=== PATIENT | female | born 1935 | race Caucasian/White ===

== ENCOUNTER 2020-12-15 12:14 | Inpatient (IN) | payer MEDICARE, OTHER, SELFPAY ==
[2020-12-15] VITALS (136 sets, daily range): BP systolic 81–176; BP diastolic 30–108; PULSE 61–96; RESP 13–30; TEMP 36.2–37.4; O2SAT 89–100
--- NOTE | 2020-12-15 12:30 | RT.EKG_ITS ---
APPROVED REPORT Exam: Resting ECG Reason for Exam: covid + Patient Location: E HR:86 bpm ECG Measurements Heart Rate 86 AXIS FL 194 P 39 QRSd 151 QRS -58 QT 391 T 99 QTc 469 Conclusion Sinus rhythm...normal P axis, V-rate 60- 99 Left atrial enlargement Left bundle branch block. ST elevation secondary to IVCD...Multiple VCG criteria
--- NOTE | 2020-12-15 12:41 | ED.GENADUL_ITS ---
Discharge Plan Disposition Patient Disposition: [facility] INPATIENT Condition: Serious Discharge Details Clinical Impression: COVID-19 Primary Care Provider: Anibal Roberts ED Provider: Zay Fernandez Home Meds and New Rx's Prescriptions: No Action metolazone 2.5 mg tablet 2.5 mg RF: 0 tramadol 50 mg Tablet 50 mg PO DAILY PRNRF: 0 amoxicillin 500 mg capsule 500 mg PO TID RF: 0 furosemide 40 mg tablet 120 mg PO DAILY RF: 0 loperamide 2 mg capsule RF: 0 isosorbide mononitrate 30 mg Tablet Extended Release 24 Hr 30 mg PO BID RF: 0 thiamine HCl (vitamin B1) 100 mg Tablet 100 mg PO DAILY RF: 0 hydralazine 25 mg tablet 25 mg PO TID RF: 0 liothyronine 5 mcg tablet 10 mcg PO DAILY RF: 0 hydrocortisone acetate [Anusol-HC] 25 mg Suppository 25 mg [place] BID RF: 0 isosorbide mononitrate 60 mg tablet extended release 24 hr 60 mg PO BID RF: 0 alprazolam [Xanax] 0.25 mg Tablet 0.5 mg PO QHS PRNRF: 0 ascorbic acid (vitamin C) [Vitamin C] 500 mg Tablet 500 mg PO DAILY RF: 0 guanfacine 1 mg tablet 1 mg PO BID RF: 0 nitroglycerin [Nitrostat] 0.4 mg Tablet, Sublingual 0.4 mg SUBLINGUAL ONCE PRNRF: 0 mupirocin 2 % ointment 1 applic TOPICAL BID RF: 0 mirtazapine 15 mg tablet PO DAILY RF: 0 azelastine 137 mcg (0.1 %) Aerosol,[place] 2 spray INTRANASAL BID RF: 0 budesonide 3 mg capsule,delayed,extend.release 9 mg PO DAILY RF: 0 estradiol [Estrace] 0.01 % (0.1 mg/gram) Cream VAGINAL RF: 0 acetaminophen [Tylenol Extra Strength] 500 mg Capsule 500 mg PO BID PRNRF: 0 escitalopram oxalate [Lexapro] 20 mg Tablet 40 mg PO DAILY RF: 0 Restasis 0.05 % [place] 1 drp ophthalmic (eye) BID RF: 0 zinc 50 mg Capsule 220 mg PO DAILY RF: 0 magnesium L-lactate [Magtab] 84 mg Tablet Extended Release 84 mg PO BID RF: 0 Acetyl L-Carnitine 250 mg Capsule 500 mg PO DAILY RF: 0 acetylcysteine [NAC] 600 mg Capsule 600 mg PO BID RF: 0 cholecalciferol (vitamin D3) 1,250 mcg (50,000 unit) Capsule 1,250 mcg PO QMONTH RF: 0 levomefolate calcium 15 mg Tablet 15 mg PO DAILY RF: 0 Medical Decision Making This is an 85-year-old female who lives in the town of [facility]. She has had days of cough, congestion, production of sputum with generalized weakness. She states she was seen at a local urgent care in [facility] and had a positive Covid test on Sunday. She was referred for outpatient monoclonal antibody infusion today and one presenting to the infusion suite was found to have generalized weakness, decreased p.o. intake over days time, the active cough, and was referred to the ER for further evaluation. The patient is followed primarily at the [facility] in [facility] by Dr. Anibal Roberts. Her known medical problems include esophageal spasm, rectal prolapse, coronary artery disease, microscopic colitis, peripheral edema, bradycardia, hypercholesterolemia, hypothyroidism, hypertension, stage IV chronic kidney disease, left ventricular hypertrophy, systolic dysfunction and CHF, atrial fibrillation, anemia, depression, osteoarthritis, vitamin D deficiency, COPD, rheumatoid arthritis, thrombocytosis, history of demand ischemia with mild elevation of troponins, kidney stones, Sjogren's syndrome, dysphagia, paraesophageal hernia, antiphospholipid antibodies syndrome. Patient reports having paraesophageal hernia repair approximately 2 weeks ago. She has been fully immunized against COVID-19 with medical records noting unspecified vaccine June 01 and Pfizer vaccine dose 2 on June 24, 2020 I reviewed and received the patient's records and medications including metolazone 2.5 mg, tramadol 50 mg daily as needed, N-acetylcysteine 600 mg twice daily, Xanax 0.25 to 0.5 mg at night as needed, Tylenol, Lexapro 20 mg 2 tablets once a day, thiamine 100 mg once a day, budesonide 3 mg 3 capsules once a day, Restasis 1 drop both eyes twice a day, mirtazapine 15 mg at night, isosorbide mononitrate 30 mg once twice a day, hydralazine 25 mg 3 times a day, nitroglycerin tablet as needed. Patient arrives with blood pressure 113/92, pulse 93, oxygenating 94% on room air. She is dehydrated in appearance, generally weak, and will drift her oxygen down to 91%. Family had given the patient 0.25 mg of Xanax prior to arrival. Pt notes she is unsure of when she last took her medications. Patient with difficult IV access, anesthesia consulted for midline IV placement R arm. Given the known Covid status, a broad swath of laboratories including CBC, comprehensive, inflammatory and cardiac markers along with blood culture were obtained. I did order an in-house Covid test as well. Portable chest x-ray: no focal infiltrate seen. Laboratories: White count of 9, hematocrit 46, platelets 260. Lactic acid 2.0. Sodium 138, potassium 4.1, chloride 101, BUN 47, creatinine 2.6. LFTs unremarkable. Troponin I elevated at 0.22 in the indeterminate range. Covid +. Case discussed with Dr Hays and we will admit for further management. HPI General Mode of arrival: wheelchair . Date/Time Provider Initiated Documentation: 12/15/20 12:16 . Limitations to Documentation: no limitations . Information obtained by: patient . History of Present Illness 85 year old F presents to the emergency department with the chief complaint of Positive COVID- 19 test this weekend, generalized weakness, cough w sputum, described as moderate, and is localized to the chest. Patient reports no radiation. Patient started experiencing this day(s) and it has been constant. No relieving factors improve symptom(s), No exacerbating factors reported . Patient notes cough, loss of appetite, malaise, nausea/vomiting, weakness and other (Dry heaves without vomiting. Loose and watery stool. Cough with production of sputum). Patient did receive the following treatments prior to arrival, none Related Data Home Medications Medication Instructions Recorded Confirmed acetaminophen [Tylenol Extra 500 mg PO BID PRN 12/15/20 12/15/20 Strength] acetylcarnitine HCl [Acetyl 500 mg PO DAILY 12/15/20 12/15/20 L-Carnitine] acetylcysteine [NAC] 600 mg PO BID 12/15/20 12/15/20 alprazolam [Xanax] 0.5 mg PO QHS PRN 12/15/20 12/15/20 amoxicillin 500 mg PO TID 12/15/20 12/15/20 ascorbic acid (vitamin C) [Vitamin 500 mg PO DAILY 12/15/20 12/15/20 C] azelastine 2 spray INTRANASAL BID 12/15/20 12/15/20 budesonide 9 mg PO DAILY 12/15/20 12/15/20 cholecalciferol (vitamin D3) 1,250 mcg PO QMONTH 12/15/20 12/15/20 cyclosporine [Restasis] 1 drp OPHTHALMIC (EYE) BID 12/15/20 12/15/20 escitalopram oxalate [Lexapro] 40 mg PO DAILY 12/15/20 12/15/20 estradiol [Estrace] VAGINAL 12/15/20 furosemide 120 mg PO DAILY 12/15/20 12/15/20 guanfacine 1 mg PO BID 12/15/20 12/15/20 hydralazine 25 mg PO TID 12/15/20 12/15/20 hydrocortisone acetate [Anusol-HC] 25 mg [place] BID 12/15/20 12/15/20 isosorbide mononitrate 30 mg PO BID 12/15/20 12/15/20 isosorbide mononitrate 60 mg PO BID 12/15/20 12/15/20 levomefolate calcium 15 mg PO DAILY 12/15/20 12/15/20 liothyronine 10 mcg PO DAILY 12/15/20 12/15/20 loperamide 12/15/20 magnesium L-lactate [Magtab] 84 mg PO BID 12/15/20 12/15/20 metolazone 2.5 mg 12/15/20 mirtazapine mg PO DAILY 12/15/20 mupirocin 1 applic TOPICAL BID 12/15/20 12/15/20 nitroglycerin [Nitrostat] 0.4 mg SUBLINGUAL ONCE PRN 12/15/20 12/15/20 thiamine HCl (vitamin B1) 100 mg PO DAILY 12/15/20 12/15/20 tramadol 50 mg PO DAILY PRN 12/15/20 12/15/20 zinc 220 mg PO DAILY 12/15/20 12/15/20 Allergies Allergy/AdvReac Type Severity Reaction Status Date / Time atorvastatin [From Lipitor] Allergy Verified 12/15/20 14:13 ciprofloxacin Allergy Verified 12/15/20 14:13 rofecoxib [From Vioxx] Allergy Verified 12/15/20 14:13 sulfamethoxazole Allergy Verified 12/15/20 14:13 [From Septra] trimethoprim [From Septra] Allergy Verified 12/15/20 14:13 General Stated Complaint: SOB REGINE: 2 Review of Systems Narrative: No syncope. Dry heaves without emesis, loose watery stool, generalized weakness and malaise. See HPI. 8 systems reviewed and otherwise negative. [facility] Medical History (Updated 12/15/20 @ 15:02 by Zay Fernandez MD) Afib Antiphospholipid antibody syndrome CAD (coronary artery disease) CKD (chronic kidney disease) HTN (hypertension) Hypothyroid Kidney stone Sjogrens syndrome Social History Smoking/Tobacco Use Status: Never Smoking risk assessment performed?: Yes Alcohol Intake: never Drug use: Never Substance use type: does not use Do you feel safe at home: Yes Do you feel safe in your relationship?: Yes Exam Narrative Exam Narrative: GEN: awake, alert, oriented 3. Pleasant, well groomed, interactive. HEAD: Normocephalic, atraumatic ENT: Mucous membranes dry, oropharynx unremarkable, External ear exam unremarkable EYES: PERRL, EOMI NECK: Full ROM, no CARLOS, no menigismus CHEST/RESP: Nontender, coarse rales at the bases bilaterally CARDIOVASCULAR: RRR, no murmur, rub susanne. 2+ Rad pulse bilateral ABDOMEN: Soft, nontender, no mass. +Bowel sounds EXT: Full ROM, no edema, no rash Neuro: Grossly normal neurologic exam, conversant, interactive. Psych: Speech fluent, thoughts congruent, affect normal Course Vital Signs Vital signs: Vital Signs Temperature 36.7 C 12/15/20 12:30 Pulse 93 H 12/15/20 12:30 Respiratory Rate 18 12/15/20 12:30 Blood Pressure 113/92 H 12/15/20 12:30 Pulse Oximetry 94 12/15/20 12:30 Temperature 36.7 C 12/15/20 12:30 Temperature Source Tympanic 12/15/20 12:30 Pulse 93 H 12/15/20 12:30 Respiratory Rate 18 12/15/20 12:30 Blood Pressure 113/92 H 12/15/20 12:30 Pulse Oximetry 94 12/15/20 12:30 Oxygen Delivery Method Room Air 12/15/20 12:30 Oxygen Flow Rate 0 12/15/20 12:30 Pain Level 0 12/15/20 12:30 Lab/Test Results Lab/Test Results: 12/15/20 12:34 Blood Blood Culture - Pending 12/15/20 12:34 Blood Blood Culture - Pending
--- NOTE | 2020-12-15 13:19 | NUR.NOTE ---
missed IV x 2, anesthesia paged for access, provider aware. Nursing Note:
[2020-12-15] MEDS: Normal Saline 1,000 ML 150 ML IV (13:59)
[2020-12-15 14:00] LABS: Source Nasal/Nares
[2020-12-15 14:07] LABS: Abs Immature Grans 0.05 10^3/uL (0.0-0.06); Absolute Basophil Count 0.01 10^3/uL (0.0-0.2); Absolute Lymphocyte Count 1.02 10^3/uL (1.2-3.4); Absolute Monocyte Count 0.46 10^3/uL (0.1-0.8); Absolute Neutrophil Count 7.85 10^3/uL (1.2-6.7); Basophils % 0.1; HCT 46.7 % (36.0-46.0); HGB 14.1 g/dL (11.2-15.7); Immature Grans % 0.5; Lymphocytes % 10.9; MCH 29.3 pg (27.0-33.0); MCHC 30.2 % (32.0-36.0); MCV 97.1 fL (80-95); MPV 10.4 fL (8.0-11.0); Monocytes % 4.9; Neutrophils % 83.6; Nucleated RBC 0 %; Platelet Count 260 10^3/uL (130-400); RBC 4.81 10^6/uL (3.93-5.22); RDW 13.9 % (11.7-14.6); RDW-SD 49.7 fL; WBC 9.39 10^3/uL (4.4-10.8)
[2020-12-15 14:34] LABS: ALT 26 U/L (14-59); AST 30 U/L (15-37); Albumin 3.4 g/dL (3.4-5.0); Alkaline Phosphatase 91 U/L (46-116); Anion Gap 9.4 mmol/L (3-11); BUN 47 mg/dL (7-18); Bilirubin, Total 0.4 mg/dL (0.2-1.0); C-Reactive Protein 1.11 mg/dL (0.0-0.3); CO2 27.6 mmol/L (21.0-32.0); CREATININE 2.6 mg/dL (0.55-1.02); Chloride 101 mmol/L (98-107); Estimated GFR 17.54 (mL/min/1.73m2); Glucose 117 mg/dL (74-106); LDH 246 U/L (81-234); Potassium 4.1 mmol/L (3.5-5.1); Sodium 138 mmol/L (136-145); Total Protein 8.1 g/dL (6.4-8.2)
--- NOTE | 2020-12-15 14:37 | W.ANESVAS ---
Midline Placement Date Performed: 12/15/20 Procedure Time: 13:50 Requesting Provider: Zay Fernandez Procedure Location: Emergency Department Sedation Given (Indicate Dose Given): No Sedation given Patient Mental Status: Awake Sterility: Hand Hygiene, Surgical Cap, Surgical Mask and Chlorhexidine Laterality: Right Insertion Site: Brachial Midline Device: PowerGlide Pro 18G Catheter Length: 10 cm Midline Procedure Procedure: Vessel accessed with catheter over needle and Guidewire placed with ease Dressing: Tegaderm Applied Blood Return: Present Flushes: Easily Ultrasound: Sterile probe cover and gel used Ultrasound Image Saved?: Yes Number of Attempts (See previous attempts in note section): 2 Procedure Tolerated: Patient tolerated well Procedure Outcome: Successful Procedure Comment:: attempt 1 by Eligio on left upper arm,. vessels very tourtuous and difficult to track, artery was entered, needle was redirected, the vein was entered, but no blood flow was noted on full advancement of catheter and a dressing was placed and RN aware of inadvertent arterial puncture. 2nd attempt Lilo, right upper arm with success. Performed By: Casey Nagy
[2020-12-15 14:43] LABS: Troponin I 0.22 ng/mL (<0.06)
[2020-12-15 14:46] LABS: Procalcitonin 0.2 ng/mL
[2020-12-15 14:54] LABS: COVID-19 PCR POSITIVE (Negative)
[2020-12-15 14:57] LABS: Creatine Kinase 36 U/L (26-192); NT-proBNP 5533 pg/mL (<300)
--- NOTE | 2020-12-15 15:05 | DI.RAD_ITS ---
Exam(s) XR PORTABLE CHEST AP EXAM: XR PORTABLE CHEST AP CLINICAL HISTORY: Covid +, weakness TECHNIQUE: 2D digital imaging was performed. COMPARISON: No exams were available for comparison FINDINGS: MEDIASTINUM: Normal. HEART: Normal. PULMONARY VASCULATURE: Normal. LUNGS: There is a linear infiltrate in the left mid lung. This may represent atelectasis or pneumoni a. PLEURAL SPACE: No pleural effusion or pneumothorax. BONE:Within normal limits for the patient's age. OTHER FINDINGS:Normal. IMPRESSION: Linear infiltrate in the left mid lung. This may represent atelectasis or pneumonia. DATA REPOSITORY: RADIATION DOSE DELIVERED:
[2020-12-15 15:24] LABS: D-Dimer 1942 ng/mlFEU (<500)
[2020-12-15] MEDS: Dexamethasone 10 MG/ML VIAL IVP (15:33)
[2020-12-15] MEDS: Normal Saline Flush 10 ML SYR IVP (15:34)
[2020-12-15 15:35] LABS: Ferritin 358 ng/mL (8-252)
[2020-12-15 15:44] LABS: Bilirubin Negative (Negative); Blood Negative (Negative); Glucose Negative (Negative); Ketones Negative (Negative); Leukocyte Esterase Moderate (Negative); Nitrite Negative (Negative); Urobilinogen 0.2 EU/dL (Up TO 0.2)
[2020-12-15 15:46] LABS: Clarity Cloudy (Clear)
[2020-12-15 15:53] LABS: Bacteria Many HPF (Negative); C & S Indicated? Yes; Casts Negative LPF (Negative); Crystals Negative HPF (Negative); Epithelial Cells Negative HPF (Negative); Mucus Negative (Negative); Other Cells Negative (Negative); WBC >50 HPF (0-5)
[2020-12-15] MEDS: DOXYCYCLINE 100 MG in Normal Saline 100 ML IVPB (18:03)
--- NOTE | 2020-12-15 18:13 | RESPIRATORY ---
Pt positioned to lateral left side with pillows propped behind her for support.
[2020-12-15 18:39] LABS: Troponin I 0.93 ng/mL (<0.06)
--- NOTE | 2020-12-15 18:49 | W.PM.HP.N ---
Date of service: 12/15/20 Time of Service: 18:50 Assessment and Plan Assessment and plan (1) COVID-19: Status: Acute Assessment and plan: Now requiring 2L of O2. Prior to oxygen requirement, did receive monoclonal antibodies. Now that she is requiring oxygen, will give remdesivir and continue decadron. Additionally, cannot rule out DVT/PE given elevated troponin. The patient does have a h/o hypercoagulable state (antiphospholipid syndrome). Start heparin gtt. (2) Elevated troponin: Status: Acute Assessment and plan: Ddx: Acute CA (we do not know if LBBB is old - will obtain records) vs myocarditis vs acute PE. We do not know if LBBB is new or old. States she had a negative MPI this year at [facility] - we will get those records. This makes myocarditis or PE more likely. Start heparin gtt. I discussed risks/benefits of antiplatelet therapy with the patient. Given her hx of bleeding, I explained that we will watch for this and can stop heparin gtt at any time. She agrees to it. Try nitroglycerin. Cardiology consult. Pulmonology consult. Continue to trend troponins. Will abstain from asa/plavix as of right now given a listed allergy to vioxx and the h/o GI bleeding. Obtain echo. Transfer to ICU. (3) Secondary bacterial pneumonia: Status: Acute Assessment and plan: Start doxycycline/ceftriaxone (4) CKD (chronic kidney disease): Status: Chronic Assessment and plan: Probably at baseline. Obtain PCP records. Will not give IVF. Will maintain home doses of diuretics (5) Antiphospholipid antibody syndrome: Status: Chronic Assessment and plan: See elevated troponin (6) Discharge planning issues: Status: Acute Assessment and plan: Full code Transfer to ICU Low threshold to transfer to a tertiary care facility Total Critical Care Time 60 minutes. History of Present Illness History of Present Illness Chief Complaint: Sent from COVID infusion unit, COVID-19, poor PO intake Narrative: Ms Daugherty is an 85 year old female with PMHx of Afib, Chronic systolic CHF, CAD with h/o type 2 NSTEMI and mild elevation of troponins but normal stress test this year, per patient ([facility]), antiphospholipid syndrome not on anticoagulation due to h/o chronic GI bleeding and iron deficiency, CKD4 , as well as h/o recent hiatal hernia repear (10/04), who was sent over to [facility] ED from [facility]19 antibody infusion clinic after presenting there for her infusion. The patient was reporting not being able to eat or drink for three days due to nausea and dry heaving. She states she first went to get tested on Sunday because she found out that her daughter had tested positive. Her vaccinated daughter had attended a wedding and came down with COVID, now intubated in [place], per patient. The patient herself was asymptomatic on Sunday. She states she has had symptoms of fatigue, cough, but no shortness of breath, diarrhea, a couple of days ago. She has brought up purulent sputum a few times. She endorses subjective fevers/chills. She has not taken her medications in 2 days. She reports epigastric pain which she gets frequently and which goes away with milk. She did not require supplemental oxygen on initial arrival to the ED. She was found to have an elevated troponin of 0.22. Hospitalist admission was requested. She was prescribed monoclonal antibodies and admitted for further workup/management. Since then, she has required 2L of O2. Review of Systems All systems reviewed & are unremarkable except as noted in HPI and below PFSH Medical History (Updated 12/15/20 @ 20:14 by Leanna Hays MD) Afib Antiphospholipid antibody syndrome CAD (coronary artery disease) CKD (chronic kidney disease) COPD (chronic obstructive pulmonary disease) Elevated troponin GI bleeding Hiatal hernia HTN (hypertension) Hypothyroid Iron deficiency anemia Kidney stone Rectal prolapse Sjogrens syndrome Surgical History (Updated 12/15/20 @ 20:08 by Leanna Hays MD) History of repair of hiatal hernia Family History (Updated 12/15/20 @ 20:09 by Leanna Hays MD) Sister Heart disease Hypertension Father Heart disease Stroke Other Diabetes Social History (Updated 12/15/20 @ 20:09 by Leanna Hays MD) Smoking/Tobacco Use Status: Former Tobacco Use Smoking risk assessment performed?: Yes Alcohol Intake: current Alcohol Intake frequency: a few times a month Drug use: Never Substance use type: does not use Do you feel safe at home: Yes Do you feel safe in your relationship?: Yes Meds Allergies and Home Medications Allergies Allergy/AdvReac Type Severity Reaction Status Date / Time atorvastatin [From Lipitor] Allergy Verified 12/15/20 14:13 ciprofloxacin Allergy Verified 12/15/20 14:13 rofecoxib [From Vioxx] Allergy Verified 12/15/20 14:13 sulfamethoxazole Allergy Verified 12/15/20 14:13 [From Septra] trimethoprim [From Septra] Allergy Verified 12/15/20 14:13 Home Medications Medication Instructions Recorded Confirmed Type acetaminophen [Tylenol Extra 500 mg PO BID PRN 12/15/20 12/15/20 History Strength] acetylcarnitine HCl [Acetyl 500 mg PO DAILY 12/15/20 12/15/20 History L-Carnitine] acetylcysteine [NAC] 600 mg PO BID 12/15/20 12/15/20 History alprazolam [Xanax] 0.5 mg PO QHS PRN 12/15/20 12/15/20 History amoxicillin 500 mg PO TID 12/15/20 12/15/20 History ascorbic acid (vitamin C) [Vitamin 500 mg PO DAILY 12/15/20 12/15/20 History C] azelastine 2 spray INTRANASAL BID 12/15/20 12/15/20 History budesonide 9 mg PO DAILY 12/15/20 12/15/20 History cholecalciferol (vitamin D3) 1,250 mcg PO QMONTH 12/15/20 12/15/20 History cyclosporine [Restasis] 1 drp OPHTHALMIC (EYE) BID 12/15/20 12/15/20 History escitalopram oxalate [Lexapro] 40 mg PO DAILY 12/15/20 12/15/20 History estradiol [Estrace] VAGINAL 12/15/20 History furosemide 120 mg PO DAILY 12/15/20 12/15/20 History guanfacine 1 mg PO BID 12/15/20 12/15/20 History hydralazine 25 mg PO TID 12/15/20 12/15/20 History hydrocortisone acetate [Anusol-HC] 25 mg [place] BID 12/15/20 12/15/20 History isosorbide mononitrate 30 mg PO BID 12/15/20 12/15/20 History isosorbide mononitrate 60 mg PO BID 12/15/20 12/15/20 History levomefolate calcium 15 mg PO DAILY 12/15/20 12/15/20 History liothyronine 10 mcg PO DAILY 12/15/20 12/15/20 History loperamide 12/15/20 History magnesium L-lactate [Magtab] 84 mg PO BID 12/15/20 12/15/20 History metolazone 2.5 mg 12/15/20 History mirtazapine mg PO DAILY 12/15/20 History mupirocin 1 applic TOPICAL BID 12/15/20 12/15/20 History nitroglycerin [Nitrostat] 0.4 mg SUBLINGUAL ONCE PRN 12/15/20 12/15/20 History thiamine HCl (vitamin B1) 100 mg PO DAILY 12/15/20 12/15/20 History tramadol 50 mg PO DAILY PRN 12/15/20 12/15/20 History zinc 220 mg PO DAILY 12/15/20 12/15/20 History Exam Narrative Exam Narrative: General: pleasant elderly female, nontoxic appearing, no dyspnea/tachypnea/cyanosis, not proning NEuro: A&OX3, [place], no focal deficits Psych: appropriate speech pattern/content Skin: visible skin intact HEENT: Atraumatic, normocephalic, EOMI, dry MM, clear oropharynx, no submandibular or cervical lymphadenopathy, no goiter or JVD Heart: RRR, +ELAINE Lungs: Diminished breath sounds B Abdomen: soft, tender in epigastrium, nondistended Extremities: no edema BLE's, trace pedal pulses B Results Imaging Additional studies: EKG: LBBB, no prior for comparison, HR 86, SR. EKG: persistent LBBB CXR: Linear infiltrate in the left mid lung. This may represent atelectasis or pneumonia. Labs Result diagrams: 12/15/20 13:51 12/15/20 13:51 Labs: Laboratory Results - last 24 hr 12/15/20 12/15/20 12/15/20 13:51 13:51 13:51 WBC 9.39 RBC 4.81 Hgb 14.1 Hct 46.7 H MCV 97.1 H MCH 29.3 MCHC 30.2 L RDW 13.9 Plt Count 260 MPV 10.4 Immature Gran % 0.5 Neutrophils % 83.6 Lymphocytes % 10.9 Monocytes % 4.9 Eosinophils % 0.0 Basophils % 0.1 Nucleated RBC % 0 Absolute Neutrophils 7.85 H Absolute Lymphocytes 1.02 L Absolute Monocytes 0.46 Absolute Eosinophils 0.00 Absolute Basophils 0.01 D-Dimer VBG Lactate 2.0 H Sodium 138 Potassium 4.1 Chloride 101 Carbon Dioxide 27.6 Anion Gap 9.4 BUN 47 H Creatinine 2.6 H Estimated GFR/1.73 m2 17.54 Glucose 117 H Calcium 9.0 Ferritin 358 H Total Bilirubin 0.4 AST 30 ALT 26 Alkaline Phosphatase 91 Lactate Dehydrogenase 246 H Creatine Kinase Troponin I 0.22 H* C-Reactive Protein 1.11 H NT-Pro-B Natriuret Pep Total Protein 8.1 Albumin 3.4 Procalcitonin 0.2 Urine Color Urine Clarity Urine pH Ur Specific [place] Urine Protein Urine Ketones Urine Blood Urine Nitrite Urine Bilirubin Urine Urobilinogen Ur Leukocyte Esterase Urine RBC Urine WBC Ur Epithelial Cells Urine Crystals Urine Bacteria Urine Casts Urine Mucus Urine Other Ur Culture Indicated? Urine Glucose COVID-19 Source SARS-CoV-2 (PCR) 12/15/20 12/15/20 12/15/20 13:51 13:51 13:52 WBC RBC Hgb Hct MCV MCH MCHC RDW Plt Count MPV Immature Gran % Neutrophils % Lymphocytes % Monocytes % Eosinophils % Basophils % Nucleated RBC % Absolute Neutrophils Absolute Lymphocytes Absolute Monocytes Absolute Eosinophils Absolute Basophils D-Dimer 1942 H VBG Lactate Sodium Potassium Chloride Carbon Dioxide Anion Gap BUN Creatinine Estimated GFR/1.73 m2 Glucose Calcium Ferritin Total Bilirubin AST ALT Alkaline Phosphatase Lactate Dehydrogenase Creatine Kinase 36 Troponin I C-Reactive Protein NT-Pro-B Natriuret Pep 5533 H Total Protein Albumin Procalcitonin Urine Color Urine Clarity Urine pH Ur Specific [place] Urine Protein Urine Ketones Urine Blood Urine Nitrite Urine Bilirubin Urine Urobilinogen Ur Leukocyte Esterase Urine RBC Urine WBC Ur Epithelial Cells Urine Crystals Urine Bacteria Urine Casts Urine Mucus Urine Other Ur Culture Indicated? Urine Glucose COVID-19 Source Nasal/Nares SARS-CoV-2 (PCR) POSITIVE A* 12/15/20 12/15/20 15:20 18:00 WBC RBC Hgb Hct MCV MCH MCHC RDW Plt Count MPV Immature Gran % Neutrophils % Lymphocytes % Monocytes % Eosinophils % Basophils % Nucleated RBC % Absolute Neutrophils Absolute Lymphocytes Absolute Monocytes Absolute Eosinophils Absolute Basophils D-Dimer VBG Lactate Sodium Potassium Chloride Carbon Dioxide Anion Gap BUN Creatinine Estimated GFR/1.73 m2 Glucose Calcium Ferritin Total Bilirubin AST ALT Alkaline Phosphatase Lactate Dehydrogenase Creatine Kinase Troponin I 0.93 H* C-Reactive Protein NT-Pro-B Natriuret Pep Total Protein Albumin Procalcitonin Urine Color Yellow Urine Clarity Cloudy Urine pH 6.0 Ur Specific [place] 1.020 Urine Protein 100 H Urine Ketones Negative Urine Blood Negative Urine Nitrite Negative Urine Bilirubin Negative Urine Urobilinogen 0.2 Ur Leukocyte Esterase Moderate H Urine RBC 10-20 H Urine WBC >50 H Ur Epithelial Cells Negative Urine Crystals Negative Urine Bacteria Many Urine Casts Negative Urine Mucus Negative Urine Other Negative Ur Culture Indicated? Yes Urine Glucose Negative COVID-19 Source SARS-CoV-2 (PCR) Last Vital Signs Temp 37.4 C 12/15/20 17:25 Pulse 75 12/15/20 18:02 Resp 18 12/15/20 17:25 BP 160/100 H 12/15/20 17:25 Pulse Ox 99 12/15/20 17:25
[2020-12-15] MEDS: Enoxaparin 30 MG/0.3 ML SYR SC (18:52)
--- NOTE | 2020-12-15 19:00 | RT.EKG_ITS ---
APPROVED REPORT Exam: Resting ECG Reason for Exam: ELEVATED TROP Patient Location: I HR:73 bpm ECG Measurements Heart Rate 73 AXIS MI 194 P 44 QRSd 143 QRS -58 QT 437 T 130 QTc 483 Conclusion Sinus rhythm...normal P axis, V-rate 60- 99 Left atrial enlargement...P, P'>60mS, <-0.15mV V1 Left bundle branch block...QRSd>120, broad/notched R
[2020-12-15 20:57] LABS: PTT Activated 35.7 sec (21.0-27.5)
--- NOTE | 2020-12-15 21:10 | NUR.NOTE ---
Nursing Note: Patient transfer to ICU, Report given at 2044. Patient transfered at 2054. Patients belongings accompanied patient in [facility] bag.
[2020-12-15] MEDS: cefTRIAXone 1 GM/50 ML BAG IVPB (21:15)
[2020-12-15] MEDS: Melatonin 3 MG TAB PO (22:15)
[2020-12-15] MEDS: hydrALAZINE 25 MG TAB PO (22:15)
[2020-12-15] MEDS: Isosorbide Mononitrate 30 MG TABCR PO (22:15)
[2020-12-15] MEDS: Magnesium Lactate-SR 84 MG TABCR PO (22:16)
--- NOTE | 2020-12-15 22:33 | W.PM.PROGNOT ---
Date of Service Date of service: 12/15/20 Time of Service: 22:33 Assessment and Plan Assessment and plan (1) Elevated troponin: Status: Acute Assessment and plan: Spoke with cardiology at [facility], Dr Bill Jones. He agrees with heparin drip. Troponin elevation could be related strictly to Covid; troponin leak vs myocarditis. Agrees with Echocardiogram. Given h/o APL syndrom, a P.E. is possible. BLE venous dopplers ordered. Echocardiogram was already ordered. Certainly right heart strain on echocardiogram would be evidence for a P.E. Objective Last Vital Signs Temp 36.2 C L 12/15/20 21:31 Pulse 78 12/15/20 21:31 Resp 20 12/15/20 21:31 BP 132/72 12/15/20 21:31 Pulse Ox 98 12/15/20 21:31 Laboratory Results - last 24 hr 12/15/20 12/15/20 12/15/20 13:51 13:51 13:51 WBC 9.39 RBC 4.81 Hgb 14.1 Hct 46.7 H MCV 97.1 H MCH 29.3 MCHC 30.2 L RDW 13.9 Plt Count 260 MPV 10.4 Immature Gran % 0.5 Neutrophils % 83.6 Lymphocytes % 10.9 Monocytes % 4.9 Eosinophils % 0.0 Basophils % 0.1 Nucleated RBC % 0 Absolute Neutrophils 7.85 H Absolute Lymphocytes 1.02 L Absolute Monocytes 0.46 Absolute Eosinophils 0.00 Absolute Basophils 0.01 APTT D-Dimer VBG Lactate 2.0 H Sodium 138 Potassium 4.1 Chloride 101 Carbon Dioxide 27.6 Anion Gap 9.4 BUN 47 H Creatinine 2.6 H Estimated GFR/1.73 m2 17.54 Glucose 117 H Calcium 9.0 Ferritin 358 H Total Bilirubin 0.4 AST 30 ALT 26 Alkaline Phosphatase 91 Lactate Dehydrogenase 246 H Creatine Kinase Troponin I 0.22 H* C-Reactive Protein 1.11 H NT-Pro-B Natriuret Pep Total Protein 8.1 Albumin 3.4 Procalcitonin 0.2 Urine Color Urine Clarity Urine pH Ur Specific [place] Urine Protein Urine Ketones Urine Blood Urine Nitrite Urine Bilirubin Urine Urobilinogen Ur Leukocyte Esterase Urine RBC Urine WBC Ur Epithelial Cells Urine Crystals Urine Bacteria Urine Casts Urine Mucus Urine Other Ur Culture Indicated? Urine Glucose COVID-19 Source SARS-CoV-2 (PCR) 12/15/20 12/15/2012/15/21 13:51 13:51 13:52 WBC RBC Hgb Hct MCV MCH MCHC RDW Plt Count MPV Immature Gran % Neutrophils % Lymphocytes % Monocytes % Eosinophils % Basophils % Nucleated RBC % Absolute Neutrophils Absolute Lymphocytes Absolute Monocytes Absolute Eosinophils Absolute Basophils APTT D-Dimer 1942 H VBG Lactate Sodium Potassium Chloride Carbon Dioxide Anion Gap BUN Creatinine Estimated GFR/1.73 m2 Glucose Calcium Ferritin Total Bilirubin AST ALT Alkaline Phosphatase Lactate Dehydrogenase Creatine Kinase 36 Troponin I C-Reactive Protein NT-Pro-B Natriuret Pep 5533 H Total Protein Albumin Procalcitonin Urine Color Urine Clarity Urine pH Ur Specific [place] Urine Protein Urine Ketones Urine Blood Urine Nitrite Urine Bilirubin Urine Urobilinogen Ur Leukocyte Esterase Urine RBC Urine WBC Ur Epithelial Cells Urine Crystals Urine Bacteria Urine Casts Urine Mucus Urine Other Ur Culture Indicated? Urine Glucose COVID-19 Source Nasal/Nares SARS-CoV-2 (PCR) POSITIVE A* 12/15/20 12/15/20 12/15/20 15:20 18:00 20:34 WBC RBC Hgb Hct MCV MCH MCHC RDW Plt Count MPV Immature Gran % Neutrophils % Lymphocytes % Monocytes % Eosinophils % Basophils % Nucleated RBC % Absolute Neutrophils Absolute Lymphocytes Absolute Monocytes Absolute Eosinophils Absolute Basophils APTT D-Dimer VBG Lactate Sodium Potassium Chloride Carbon Dioxide Anion Gap BUN Creatinine Estimated GFR/1.73 m2 Glucose Calcium Ferritin Total Bilirubin AST ALT Alkaline Phosphatase Lactate Dehydrogenase Creatine Kinase Troponin I 0.93 H* 1.20 H* C-Reactive Protein NT-Pro-B Natriuret Pep Total Protein Albumin Procalcitonin Urine Color Yellow Urine Clarity Cloudy Urine pH 6.0 Ur Specific [place] 1.020 Urine Protein 100 H Urine Ketones Negative Urine Blood Negative Urine Nitrite Negative Urine Bilirubin Negative Urine Urobilinogen 0.2 Ur Leukocyte Esterase Moderate H Urine RBC 10-20 H Urine WBC >50 H Ur Epithelial Cells Negative Urine Crystals Negative Urine Bacteria Many Urine Casts Negative Urine Mucus Negative Urine Other Negative Ur Culture Indicated? Yes Urine Glucose Negative COVID-19 Source SARS-CoV-2 (PCR) 12/15/20 20:34 WBC RBC Hgb Hct MCV MCH MCHC RDW Plt Count MPV Immature Gran % Neutrophils % Lymphocytes % Monocytes % Eosinophils % Basophils % Nucleated RBC % Absolute Neutrophils Absolute Lymphocytes Absolute Monocytes Absolute Eosinophils Absolute Basophils APTT 35.7 H D-Dimer VBG Lactate Sodium Potassium Chloride Carbon Dioxide Anion Gap BUN Creatinine Estimated GFR/1.73 m2 Glucose Calcium Ferritin Total Bilirubin AST ALT Alkaline Phosphatase Lactate Dehydrogenase Creatine Kinase Troponin I C-Reactive Protein NT-Pro-B Natriuret Pep Total Protein Albumin Procalcitonin Urine Color Urine Clarity Urine pH Ur Specific [place] Urine Protein Urine Ketones Urine Blood Urine Nitrite Urine Bilirubin Urine Urobilinogen Ur Leukocyte Esterase Urine RBC Urine WBC Ur Epithelial Cells Urine Crystals Urine Bacteria Urine Casts Urine Mucus Urine Other Ur Culture Indicated? Urine Glucose COVID-19 Source SARS-CoV-2 (PCR)
[2020-12-16] VITALS (63 sets, daily range): BP systolic 106–156; BP diastolic 66–85; PULSE 64–88; RESP 12–25; TEMP 36.6–36.8; O2SAT 86–99
[2020-12-16] MEDS: DOXYCYCLINE 100 MG in Normal Saline 100 ML IVPB (04:53)
[2020-12-16 04:54] LABS: Abs Immature Grans 0.04 10^3/uL (0.0-0.06); Absolute Basophil Count 0.01 10^3/uL (0.0-0.2); Absolute Lymphocyte Count 1.84 10^3/uL (1.2-3.4); Absolute Monocyte Count 0.31 10^3/uL (0.1-0.8); Absolute Neutrophil Count 7.54 10^3/uL (1.2-6.7); Basophils % 0.1; HCT 44.2 % (36.0-46.0); HGB 13.8 g/dL (11.2-15.7); Immature Grans % 0.4; Lymphocytes % 18.9; MCH 29.1 pg (27.0-33.0); MCHC 31.2 % (32.0-36.0); MCV 93.1 fL (80-95); MPV 11.1 fL (8.0-11.0); Monocytes % 3.2; Neutrophils % 77.4; Nucleated RBC 0 %; Platelet Count 250 10^3/uL (130-400); RBC 4.75 10^6/uL (3.93-5.22); RDW 13.9 % (11.7-14.6); RDW-SD 47.4 fL; WBC 9.74 10^3/uL (4.4-10.8)
[2020-12-16 04:56] LABS: Lactate 1.3 mmol/L (0.6-1.4)
[2020-12-16] MEDS: Normal Saline Flush 10 ML SYR IVP (04:56)
[2020-12-16 05:13] LABS: Magnesium 2.3 mg/dL (1.8-2.4)
[2020-12-16 05:33] LABS: D-Dimer 1272 ng/mlFEU (<500)
[2020-12-16 05:38] LABS: C-Reactive Protein 2.57 mg/dL (0.0-0.3); Creatine Kinase 57 U/L (26-192)
[2020-12-16 05:43] LABS: Troponin I 1.29 ng/mL (<0.06)
[2020-12-16 05:49] LABS: ALT 23 U/L (14-59); AST 32 U/L (15-37); Albumin 3.1 g/dL (3.4-5.0); Alkaline Phosphatase 88 U/L (46-116); Anion Gap 13.1 mmol/L (3-11); BUN 58 mg/dL (7-18); Bilirubin, Direct 0.1 mg/dL (0.0-0.2); Bilirubin, Total 0.3 mg/dL (0.2-1.0); CO2 23.9 mmol/L (21.0-32.0); CREATININE 2.5 mg/dL (0.55-1.02); Chloride 103 mmol/L (98-107); Estimated GFR 18.35 (mL/min/1.73m2); Glucose 141 mg/dL (74-106); Potassium 4.4 mmol/L (3.5-5.1); Sodium 140 mmol/L (136-145); Total Protein 7.8 g/dL (6.4-8.2)
[2020-12-16 05:56] LABS: PTT Activated > 155.0 sec (21.0-27.5)
[2020-12-16 06:10] LABS: Vitamin D 25 Total 81.7 ng/mL (30-100)
[2020-12-16 06:11] LABS: Ferritin 456 ng/mL (8-252)
--- NOTE | 2020-12-16 08:00 | RT.EKG_ITS ---
APPROVED REPORT Exam: Resting ECG Reason for Exam: ACS Patient Location: I HR:82 bpm ECG Measurements Heart Rate 82 AXIS MO 198 P 36 QRSd 137 QRS -58 QT 427 T 138 QTc 499 Conclusion Sinus rhythm...normal P axis, V-rate 60- 99 Left atrial enlargement...P, P'>60mS, <-0.15mV V1 Left bundle branch block...QRSd>120, broad/notched R
--- NOTE | 2020-12-16 08:14 | PGE_ITS ---
Subjective Subjective Interval history since last seen: Never received remdesivir last night. Troponin 1.29. on 3L of O2 - saturating 96%. Will try weaning. No CP. Epigastric pain resolved. No echo today. Objective Last Vital Signs Temp 36.2 C L 12/15/20 23:21 Pulse 78 12/16/20 06:01 Resp 16 12/16/20 06:50 BP 155/79 H 12/16/20 06:01 Pulse Ox 97 12/16/20 06:50 Laboratory Results - last 24 hr 12/15/20 12/15/20 12/15/20 13:51 13:51 13:51 WBC 9.39 RBC 4.81 Hgb 14.1 Hct 46.7 H MCV 97.1 H MCH 29.3 MCHC 30.2 L RDW 13.9 Plt Count 260 MPV 10.4 Immature Gran % 0.5 Neutrophils % 83.6 Lymphocytes % 10.9 Monocytes % 4.9 Eosinophils % 0.0 Basophils % 0.1 Nucleated RBC % 0 Absolute Neutrophils 7.85 H Absolute Lymphocytes 1.02 L Absolute Monocytes 0.46 Absolute Eosinophils 0.00 Absolute Basophils 0.01 APTT D-Dimer VBG Lactate 2.0 H Sodium 138 Potassium 4.1 Chloride 101 Carbon Dioxide 27.6 Anion Gap 9.4 BUN 47 H Creatinine 2.6 H Estimated GFR/1.73 m2 17.54 Glucose 117 H Calcium 9.0 Magnesium Ferritin 358 H Total Bilirubin 0.4 Conjugated Bilirubin AST 30 ALT 26 Alkaline Phosphatase 91 Lactate Dehydrogenase 246 H Creatine Kinase Troponin I 0.22 H* C-Reactive Protein 1.11 H NT-Pro-B Natriuret Pep Total Protein 8.1 Albumin 3.4 25-OH Vitamin D Total Procalcitonin 0.2 Urine Color Urine Clarity Urine pH Ur Specific [place] Urine Protein Urine Ketones Urine Blood Urine Nitrite Urine Bilirubin Urine Urobilinogen Ur Leukocyte Esterase Urine RBC Urine WBC Ur Epithelial Cells Urine Crystals Urine Bacteria Urine Casts Urine Mucus Urine Other Ur Culture Indicated? Urine Glucose COVID-19 Source SARS-CoV-2 (PCR) 12/15/20 12/15/20 12/15/20 13:51 13:51 13:52 WBC RBC Hgb Hct MCV MCH MCHC RDW Plt Count MPV Immature Gran % Neutrophils % Lymphocytes % Monocytes % Eosinophils % Basophils % Nucleated RBC % Absolute Neutrophils Absolute Lymphocytes Absolute Monocytes Absolute Eosinophils Absolute Basophils APTT D-Dimer 1942 H VBG Lactate Sodium Potassium Chloride Carbon Dioxide Anion Gap BUN Creatinine Estimated GFR/1.73 m2 Glucose Calcium Magnesium Ferritin Total Bilirubin Conjugated Bilirubin AST ALT Alkaline Phosphatase Lactate Dehydrogenase Creatine Kinase 36 Troponin I C-Reactive Protein NT-Pro-B Natriuret Pep 5533 H Total Protein Albumin 25-OH Vitamin D Total Procalcitonin Urine Color Urine Clarity Urine pH Ur Specific [place] Urine Protein Urine Ketones Urine Blood Urine Nitrite Urine Bilirubin Urine Urobilinogen Ur Leukocyte Esterase Urine RBC Urine WBC Ur Epithelial Cells Urine Crystals Urine Bacteria Urine Casts Urine Mucus Urine Other Ur Culture Indicated? Urine Glucose COVID-19 Source Nasal/Nares SARS-CoV-2 (PCR) POSITIVE A* 12/15/20 12/15/20 12/15/20 15:20 18:00 20:34 WBC RBC Hgb Hct MCV MCH MCHC RDW Plt Count MPV Immature Gran % Neutrophils % Lymphocytes % Monocytes % Eosinophils % Basophils % Nucleated RBC % Absolute Neutrophils Absolute Lymphocytes Absolute Monocytes Absolute Eosinophils Absolute Basophils APTT D-Dimer VBG Lactate Sodium Potassium Chloride Carbon Dioxide Anion Gap BUN Creatinine Estimated GFR/1.73 m2 Glucose Calcium Magnesium Ferritin Total Bilirubin Conjugated Bilirubin AST ALT Alkaline Phosphatase Lactate Dehydrogenase Creatine Kinase Troponin I 0.93 H* 1.20 H* C-Reactive Protein NT-Pro-B Natriuret Pep Total Protein Albumin 25-OH Vitamin D Total Procalcitonin Urine Color Yellow Urine Clarity Cloudy Urine pH 6.0 Ur Specific [place] 1.020 Urine Protein 100 H Urine Ketones Negative Urine Blood Negative Urine Nitrite Negative Urine Bilirubin Negative Urine Urobilinogen 0.2 Ur Leukocyte Esterase Moderate H Urine RBC 10-20 H Urine WBC >50 H Ur Epithelial Cells Negative Urine Crystals Negative Urine Bacteria Many Urine Casts Negative Urine Mucus Negative Urine Other Negative Ur Culture Indicated? Yes Urine Glucose Negative COVID-19 Source SARS-CoV-2 (PCR) 12/15/20 12/16/20 12/16/20 20:34 04:30 04:40 WBC 9.74 RBC 4.75 Hgb 13.8 Hct 44.2 MCV 93.1 D MCH 29.1 MCHC 31.2 L RDW 13.9 Plt Count 250 MPV 11.1 H Immature Gran % 0.4 Neutrophils % 77.4 Lymphocytes % 18.9 Monocytes % 3.2 Eosinophils % 0.0 Basophils % 0.1 Nucleated RBC % 0 Absolute Neutrophils 7.54 H Absolute Lymphocytes 1.84 Absolute Monocytes 0.31 Absolute Eosinophils 0.00 Absolute Basophils 0.01 APTT 35.7 H > 155.0 H* D D-Dimer VBG Lactate Sodium Potassium Chloride Carbon Dioxide Anion Gap BUN Creatinine Estimated GFR/1.73 m2 Glucose Calcium Magnesium Ferritin Total Bilirubin Conjugated Bilirubin AST ALT Alkaline Phosphatase Lactate Dehydrogenase Creatine Kinase Troponin I C-Reactive Protein NT-Pro-B Natriuret Pep Total Protein Albumin 25-OH Vitamin D Total Procalcitonin Urine Color Urine Clarity Urine pH Ur Specific [place] Urine Protein Urine Ketones Urine Blood Urine Nitrite Urine Bilirubin Urine Urobilinogen Ur Leukocyte Esterase Urine RBC Urine WBC Ur Epithelial Cells Urine Crystals Urine Bacteria Urine Casts Urine Mucus Urine Other Ur Culture Indicated? Urine Glucose COVID-19 Source SARS-CoV-2 (PCR) 12/16/20 12/16/20 12/16/20 04:40 04:40 04:40 WBC RBC Hgb Hct MCV MCH MCHC RDW Plt Count MPV Immature Gran % Neutrophils % Lymphocytes % Monocytes % Eosinophils % Basophils % Nucleated RBC % Absolute Neutrophils Absolute Lymphocytes Absolute Monocytes Absolute Eosinophils Absolute Basophils APTT D-Dimer VBG Lactate Sodium 140 Potassium 4.4 Chloride 103 Carbon Dioxide 23.9 Anion Gap 13.1 H BUN 58 H D Creatinine 2.5 H Estimated GFR/1.73 m2 18.35 Glucose 141 H Calcium 9.0 Magnesium 2.3 Ferritin 456 H Total Bilirubin 0.3 Conjugated Bilirubin 0.1 AST 32 ALT 23 Alkaline Phosphatase 88 Lactate Dehydrogenase Creatine Kinase 57 Troponin I 1.29 H* C-Reactive Protein 2.57 H NT-Pro-B Natriuret Pep Total Protein 7.8 Albumin 3.1 L 25-OH Vitamin D Total Procalcitonin Urine Color Urine Clarity Urine pH Ur Specific [place] Urine Protein Urine Ketones Urine Blood Urine Nitrite Urine Bilirubin Urine Urobilinogen Ur Leukocyte Esterase Urine RBC Urine WBC Ur Epithelial Cells Urine Crystals Urine Bacteria Urine Casts Urine Mucus Urine Other Ur Culture Indicated? Urine Glucose COVID-19 Source SARS-CoV-2 (PCR) 12/16/20 12/16/20 12/16/20 04:40 04:40 04:40 WBC RBC Hgb Hct MCV MCH MCHC RDW Plt Count MPV Immature Gran % Neutrophils % Lymphocytes % Monocytes % Eosinophils % Basophils % Nucleated RBC % Absolute Neutrophils Absolute Lymphocytes Absolute Monocytes Absolute Eosinophils Absolute Basophils APTT D-Dimer 1272 H VBG Lactate 1.3 Sodium Potassium Chloride Carbon Dioxide Anion Gap BUN Creatinine Estimated GFR/1.73 m2 Glucose Calcium Magnesium Ferritin Total Bilirubin Conjugated Bilirubin AST ALT Alkaline Phosphatase Lactate Dehydrogenase Creatine Kinase Troponin I C-Reactive Protein NT-Pro-B Natriuret Pep Total Protein Albumin 25-OH Vitamin D Total 81.7 Procalcitonin Urine Color Urine Clarity Urine pH Ur Specific [place] Urine Protein Urine Ketones Urine Blood Urine Nitrite Urine Bilirubin Urine Urobilinogen Ur Leukocyte Esterase Urine RBC Urine WBC Ur Epithelial Cells Urine Crystals Urine Bacteria Urine Casts Urine Mucus Urine Other Ur Culture Indicated? Urine Glucose COVID-19 Source SARS-CoV-2 (PCR)
[2020-12-16] MEDS: hydrALAZINE 25 MG TAB PO ×2 (09:19→13:21)
[2020-12-16] MEDS: Cholecalciferol (Vitamin D3) 1,000 UNIT TAB 2000 UNITS PO (09:19)
[2020-12-16] MEDS: Furosemide 40 MG TAB 120 MG PO (09:19)
[2020-12-16] MEDS: Dexamethasone 10 MG/ML VIAL 6 MG IVP (09:19)
[2020-12-16] MEDS: Escitalopram 20 MG TAB 40 MG PO (09:20)
[2020-12-16] MEDS: Thiamine 100 MG TAB PO (09:20)
[2020-12-16] MEDS: Magnesium Lactate-SR 84 MG TABCR PO (09:20)
[2020-12-16] MEDS: Ascorbic Acid 500 MG TAB PO (09:20)
[2020-12-16] MEDS: guanFACINE 1 MG TAB PO (09:20)
[2020-12-16] MEDS: Zinc Sulfate 220 MG TAB PO (09:20)
[2020-12-16] MEDS: REMDESIVIR 200 MG in Normal Saline 250 ML 250 MG IVPB (09:21)
--- NOTE | 2020-12-16 09:21 | W.CARDCONSUL ---
Date of service: 12/16/20 Time of Service: : Assessment and Plan Assessment and plan (1) Elevated troponin: Status: Acute Assessment and plan: 1. Unclear whether or not troponin elevation is a type I versus type II non-STEMI. Certainly we see elevated troponin strictly due to Covid-19 both from a direct attack by the virus on the myocardial tissue as well as damage due to in immunologic response to the virus. Given her hypoxia this could represent demand ischemia though she is not tachycardic. She likely has underlying coronary disease given her history of type II non-STEMI's in the past. However, per report had a negative stress test within the last year. We are awaiting those records. The patient does has risk factors for acute plaque rupture but is not reporting any significant chest discomfort. Her EKGs are reassuring though she does have a left bundle branch block of unknown chronicity. Unfortunately we are unable to obtain an echocardiogram today. Her creatinine is elevated so she cannot receive a CT to rule out PE and the current plan is to get a VQ scan if stable. Given her antiphospholipid antibody syndrome and the fact that she was on previous anticoagulation, certainly PE is high on the differential especially in the setting of a hypercoagulable state such as Covid. ?For now I agree with the current plan of trending troponins while continuing heparin. It sounds as though the patient has a history of GI bleeding which is why she was not previously on anticoagulation. We will see how she does with the heparin. ?Agree with holding off on Plavix load given the uncertainty that this is in fact a type I non-STEMI and the fact that the patient has had some bleeding issues in the past. ?We will give her full dose aspirin and then continue 81 mg thereon after. ?Should she continue to deteriorate despite aggressive Covid management, would consider transfer to [facility] service History of Present Illness History of Present Illness Chief Complaint: Elevated trop Narrative: This is an 85-year-old female with past medical history significant for atrial fibrillation, systolic heart failure, and presumed coronary artery disease after a type II non-STEMI earlier this year who presents now with acute COVID-19 from the infusion center despite being vaccinated x2 with the Pfizer vaccine. She also has a history of antiphospholipid antibody but not on anticoagulation due to chronic GI bleeding. She initially presented to the antibody infusion clinic after presenting there for infusion. She reported that she had not build to eat or drink anything for 3 days due to nausea and vomiting. She was advised to come to the emergency room. There she was found to have an elevated troponin. She reports some epigastric pain which goes away when she tries to eat something. Her initial troponin was 0.2 but has since climbed to 1.3. She currently denies chest pain. Her EKG shows left bundle branch block but negative for scarbosa criteria. We do not have any previous EKGs to know the chronicity of her left bundle branch block. Review of Systems All systems reviewed & are unremarkable except as noted in HPI and below PFS Medical History Afib Antiphospholipid antibody syndrome CAD (coronary artery disease) CKD (chronic kidney disease) COPD (chronic obstructive pulmonary disease) Elevated troponin GI bleeding Hiatal hernia HTN (hypertension) Hypothyroid Iron deficiency anemia Kidney stone Rectal prolapse Sjogrens syndrome Surgical History History of repair of hiatal hernia Family History Sister Heart disease Hypertension Father Heart disease Stroke Other Diabetes Social History Smoking/Tobacco Use Status: Former Tobacco Use Smoking risk assessment performed?: Yes Alcohol Intake: current Alcohol Intake frequency: a few times a month Drug use: Never Substance use type: does not use Do you feel safe at home: Yes Do you feel safe in your relationship?: Yes Exam Const General: comfortable and no acute distress [facility] Head: normocephalic and atraumatic Eyes General: appearance normal, both eyes and all related structures Resp Effort & Inspection: normal respiratory effort Cardio Rate: regular rate Rhythm: regular rhythm GI Palpation: soft Auscultation: normoactive bowel sounds Skin General skin exam: no rashes or lesions noted Extrem General: normal to inspection and no clubbing, cyanosis or edema Psych Appearance: grossly normal Results Last Vital Signs Temp 36.2 C L 12/15/20 23:21 Pulse 78 12/16/20 06:01 Resp 16 12/16/20 06:50 BP 155/79 H 12/16/20 06:01 Pulse Ox 97 12/16/20 06:50 Labs Result diagrams: 12/16/20 04:30 12/16/20 04:40 Labs: Laboratory Results - last 24 hr 12/15/20 12/15/20 12/15/20 13:51 13:51 13:51 WBC 9.39 RBC 4.81 Hgb 14.1 Hct 46.7 H MCV 97.1 H MCH 29.3 MCHC 30.2 L RDW 13.9 Plt Count 260 MPV 10.4 Immature Gran % 0.5 Neutrophils % 83.6 Lymphocytes % 10.9 Monocytes % 4.9 Eosinophils % 0.0 Basophils % 0.1 Nucleated RBC % 0 Absolute Neutrophils 7.85 H Absolute Lymphocytes 1.02 L Absolute Monocytes 0.46 Absolute Eosinophils 0.00 Absolute Basophils 0.01 APTT D-Dimer VBG Lactate 2.0 H Sodium 138 Potassium 4.1 Chloride 101 Carbon Dioxide 27.6 Anion Gap 9.4 BUN 47 H Creatinine 2.6 H Estimated GFR/1.73 m2 17.54 Glucose 117 H Calcium 9.0 Magnesium Ferritin 358 H Total Bilirubin 0.4 Conjugated Bilirubin AST 30 ALT 26 Alkaline Phosphatase 91 Lactate Dehydrogenase 246 H Creatine Kinase Troponin I 0.22 H* C-Reactive Protein 1.11 H NT-Pro-B Natriuret Pep Total Protein 8.1 Albumin 3.4 25-OH Vitamin D Total Procalcitonin 0.2 Urine Color Urine Clarity Urine pH Ur Specific [place] Urine Protein Urine Ketones Urine Blood Urine Nitrite Urine Bilirubin Urine Urobilinogen Ur Leukocyte Esterase Urine RBC Urine WBC Ur Epithelial Cells Urine Crystals Urine Bacteria Urine Casts Urine Mucus Urine Other Ur Culture Indicated? Urine Glucose COVID-19 Source SARS-CoV-2 (PCR) 12/15/20 12/15/20 12/15/20 13:51 13:51 13:52 WBC RBC Hgb Hct MCV MCH MCHC RDW Plt Count MPV Immature Gran % Neutrophils % Lymphocytes % Monocytes % Eosinophils % Basophils % Nucleated RBC % Absolute Neutrophils Absolute Lymphocytes Absolute Monocytes Absolute Eosinophils Absolute Basophils APTT D-Dimer 1942 H VBG Lactate Sodium Potassium Chloride Carbon Dioxide Anion Gap BUN Creatinine Estimated GFR/1.73 m2 Glucose Calcium Magnesium Ferritin Total Bilirubin Conjugated Bilirubin AST ALT Alkaline Phosphatase Lactate Dehydrogenase Creatine Kinase 36 Troponin I C-Reactive Protein NT-Pro-B Natriuret Pep 5533 H Total Protein Albumin 25-OH Vitamin D Total Procalcitonin Urine Color Urine Clarity Urine pH Ur Specific [place] Urine Protein Urine Ketones Urine Blood Urine Nitrite Urine Bilirubin Urine Urobilinogen Ur Leukocyte Esterase Urine RBC Urine WBC Ur Epithelial Cells Urine Crystals Urine Bacteria Urine Casts Urine Mucus Urine Other Ur Culture Indicated? Urine Glucose COVID-19 Source Nasal/Nares SARS-CoV-2 (PCR) POSITIVE A* 12/15/20 12/15/20 12/15/20 15:20 18:00 20:34 WBC RBC Hgb Hct MCV MCH MCHC RDW Plt Count MPV Immature Gran % Neutrophils % Lymphocytes % Monocytes % Eosinophils % Basophils % Nucleated RBC % Absolute Neutrophils Absolute Lymphocytes Absolute Monocytes Absolute Eosinophils Absolute Basophils APTT D-Dimer VBG Lactate Sodium Potassium Chloride Carbon Dioxide Anion Gap BUN Creatinine Estimated GFR/1.73 m2 Glucose Calcium Magnesium Ferritin Total Bilirubin Conjugated Bilirubin AST ALT Alkaline Phosphatase Lactate Dehydrogenase Creatine Kinase Troponin I 0.93 H* 1.20 H* C-Reactive Protein NT-Pro-B Natriuret Pep Total Protein Albumin 25-OH Vitamin D Total Procalcitonin Urine Color Yellow Urine Clarity Cloudy Urine pH 6.0 Ur Specific [place] 1.020 Urine Protein 100 H Urine Ketones Negative Urine Blood Negative Urine Nitrite Negative Urine Bilirubin Negative Urine Urobilinogen 0.2 Ur Leukocyte Esterase Moderate H Urine RBC 10-20 H Urine WBC >50 H Ur Epithelial Cells Negative Urine Crystals Negative Urine Bacteria Many Urine Casts Negative Urine Mucus Negative Urine Other Negative Ur Culture Indicated? Yes Urine Glucose Negative COVID-19 Source SARS-CoV-2 (PCR) 12/15/20 12/16/20 12/16/20 20:34 04:30 04:40 WBC 9.74 RBC 4.75 Hgb 13.8 Hct 44.2 MCV 93.1 D MCH 29.1 MCHC 31.2 L RDW 13.9 Plt Count 250 MPV 11.1 H Immature Gran % 0.4 Neutrophils % 77.4 Lymphocytes % 18.9 Monocytes % 3.2 Eosinophils % 0.0 Basophils % 0.1 Nucleated RBC % 0 Absolute Neutrophils 7.54 H Absolute Lymphocytes 1.84 Absolute Monocytes 0.31 Absolute Eosinophils 0.00 Absolute Basophils 0.01 APTT 35.7 H > 155.0 H* D D-Dimer VBG Lactate Sodium Potassium Chloride Carbon Dioxide Anion Gap BUN Creatinine Estimated GFR/1.73 m2 Glucose Calcium Magnesium Ferritin Total Bilirubin Conjugated Bilirubin AST ALT Alkaline Phosphatase Lactate Dehydrogenase Creatine Kinase Troponin I C-Reactive Protein NT-Pro-B Natriuret Pep Total Protein Albumin 25-OH Vitamin D Total Procalcitonin Urine Color Urine Clarity Urine pH Ur Specific [place] Urine Protein Urine Ketones Urine Blood Urine Nitrite Urine Bilirubin Urine Urobilinogen Ur Leukocyte Esterase Urine RBC Urine WBC Ur Epithelial Cells Urine Crystals Urine Bacteria Urine Casts Urine Mucus Urine Other Ur Culture Indicated? Urine Glucose COVID-19 Source SARS-CoV-2 (PCR) 12/16/20 12/16/20 12/16/20 04:40 04:40 04:40 WBC RBC Hgb Hct MCV MCH MCHC RDW Plt Count MPV Immature Gran % Neutrophils % Lymphocytes % Monocytes % Eosinophils % Basophils % Nucleated RBC % Absolute Neutrophils Absolute Lymphocytes Absolute Monocytes Absolute Eosinophils Absolute Basophils APTT D-Dimer VBG Lactate Sodium 140 Potassium 4.4 Chloride 103 Carbon Dioxide 23.9 Anion Gap 13.1 H BUN 58 H D Creatinine 2.5 H Estimated GFR/1.73 m2 18.35 Glucose 141 H Calcium 9.0 Magnesium 2.3 Ferritin 456 H Total Bilirubin 0.3 Conjugated Bilirubin 0.1 AST 32 ALT 23 Alkaline Phosphatase 88 Lactate Dehydrogenase Creatine Kinase 57 Troponin I 1.29 H* C-Reactive Protein 2.57 H NT-Pro-B Natriuret Pep Total Protein 7.8 Albumin 3.1 L 25-OH Vitamin D Total Procalcitonin Urine Color Urine Clarity Urine pH Ur Specific [place] Urine Protein Urine Ketones Urine Blood Urine Nitrite Urine Bilirubin Urine Urobilinogen Ur Leukocyte Esterase Urine RBC Urine WBC Ur Epithelial Cells Urine Crystals Urine Bacteria Urine Casts Urine Mucus Urine Other Ur Culture Indicated? Urine Glucose COVID-19 Source SARS-CoV-2 (PCR) 12/16/20 12/16/20 12/16/20 04:40 04:40 04:40 WBC RBC Hgb Hct MCV MCH MCHC RDW Plt Count MPV Immature Gran % Neutrophils % Lymphocytes % Monocytes % Eosinophils % Basophils % Nucleated RBC % Absolute Neutrophils Absolute Lymphocytes Absolute Monocytes Absolute Eosinophils Absolute Basophils APTT D-Dimer 1272 H VBG Lactate 1.3 Sodium Potassium Chloride Carbon Dioxide Anion Gap BUN Creatinine Estimated GFR/1.73 m2 Glucose Calcium Magnesium Ferritin Total Bilirubin Conjugated Bilirubin AST ALT Alkaline Phosphatase Lactate Dehydrogenase Creatine Kinase Troponin I C-Reactive Protein NT-Pro-B Natriuret Pep Total Protein Albumin 25-OH Vitamin D Total 81.7 Procalcitonin Urine Color Urine Clarity Urine pH Ur Specific [place] Urine Protein Urine Ketones Urine Blood Urine Nitrite Urine Bilirubin Urine Urobilinogen Ur Leukocyte Esterase Urine RBC Urine WBC Ur Epithelial Cells Urine Crystals Urine Bacteria Urine Casts Urine Mucus Urine Other Ur Culture Indicated? Urine Glucose COVID-19 Source SARS-CoV-2 (PCR)
[2020-12-16] MEDS: Liothyronine 5 MCG TAB 10 MCG PO (10:12)
[2020-12-16] MEDS: Aspirin E.C. 325 MG TABEC PO (12:24)
[2020-12-16 12:48] LABS: Troponin I 1.11 ng/mL (<0.06)
[2020-12-16] MEDS: Isosorbide Mononitrate 60 MG TABCR PO (13:21)
[2020-12-16] MEDS: Isosorbide Mononitrate 30 MG TABCR PO (13:21)
[2020-12-16 13:24] LABS: PTT Activated > 155.0 sec (21.0-27.5)
--- NOTE | 2020-12-16 14:14 | PDOC.CMDIS ---
- If Service Date Differs Date of service: 12/16/20 Time of Service: 14:14 LACE Index Scoring Tool - Questions: Length of Stay (in days): 1 Acuity (Admit via E.D.?): Yes Comorbidities: Chronic Pulmonary Disease, Liver or Renal Disease E.D. Visits: 1 - Answers: Total Score: 10 Risk of Readmission: High Risk Care Management Discharge Reason for Hospitalization: Covid-19, MARIAELENA Discharge Plan: Emergent transfer from [facility] ICU to [facility]. EMS transportation coordinated by nursing supervisor home restoration service. Patient/Family Education Needs: Review of transfer plan, ask me three.
--- NOTE | 2020-12-16 14:17 | W.PM.DS.N ---
Date of service: 12/16/20 Time of Service: 14:18 DS: Diagnosis Discharge Diagnosis (1) Elevated troponin: Status: Acute (2) COVID-19: Status: Acute (3) Secondary bacterial pneumonia: Status: Acute (4) Antiphospholipid antibody syndrome: Status: Chronic (5) CKD (chronic kidney disease): Status: Chronic (6) COPD (chronic obstructive pulmonary disease): Status: Chronic (7) Esophageal dysphagia: Status: Acute (8) H/O: GI bleed: Status: Acute (9) Asymptomatic bacteriuria: Status: Acute Discharge Plan Disposition Patient Disposition: [facility] Condition: Serious Discharge Details Reason For Visit: BRENDENID-19, MARIAELENA Admit Date/Time: 12/16/20 08:25 Admit Provider: Leanna Hays Attending Provider: Leanna Hays Primary Care Provider: Anibal Roberts [facility] Hospital Course: Ms Daugherty is an 85 year old female with PMHx of CAD s/p type 2 NSTEMI in the past but a normal MPI stress test in 2020, as well as h/o antiphospholipid syndrome, paroxysmal Afib, chronic systolic CHF (unknown LVEF), not on anticoagulation, recent repair of her paraesophageal/hiatal hernia, as well as h/o chronic iron deficiency anemia which was, per patient, due to suspected chronic GI bleeding, who was admitted to [facility] hospitalist service on 12/15/20 and thereafter transferred to the ICU for elevated troponin due to ACS vs myocarditis in setting of acute COVID-19 disease. Additionally, the patient does appear to have a mild superimposed bacterial pneumonia, for which she was initiated on empiric ceftriaxone and doxycycline. The patient had first tested positive for COVID-19 while asymptomatic on 12/11/20. She develped symptoms of fatigue/malaise, mildly productive cough, nausea and dry heaving as well as diarrhea 1-2 days later. She was referred for monoclonal antibody infusion at [facility] - however, at the time of presentation was felt to require an evaluation in our ED based on her clinical appearance. There, she was found to have an elevated troponin of 0.22 with a LBBB on EKG, which we now know to be old. The patient did report epigastric pain which she gets frequently and which goes away with milk ever since her surgery (she has also had difficulty with swallowing and with regurgitation ever since her surgery in 10/04). The patient did not initially require oxygen, so she did receive the monoclonal antibody infusion (bamlanivimab/etesevimab) on 12/15/20. However, her oxygen requirement increased to 2L, so the patient was initiated on dexamethasone and remdesivir. Troponins continued to go up to 0.93, then to 1.20, 1.29 and finally back down to 1.11. The patient was empirically started on heparin gtt, but with cardiology's advice ([facility]), we held off of plavix as the patient was not actively having chest pain. Dr Lin of cardiology at [facility] did recommend addition of asa. The patient was advised about the risk of bleeding and agreed to try the therapy. It is unclear if she is having an MS or another cause for her elevated troponin (myocarditis from COVID-19 or possibly even a PE, considering hypercoagulable state). Cardiology recommends a transthoracic echocardiogram, but one is not available in our facility until next week. No beds were available at [facility] or [facility]. The patient was accepted in transfer to [facility] ICU by Dr Grande for further workup and management of her elevated troponin, COVID-19. She would also benefit from a GI consult for her esophageal phase dysphagia. Total Critical Care Time 90 minutes. Please, look for [facility] for list of inpatient medications. The list below reflect the patient's outpatient prescription. Home Meds and New Rx's Prescriptions: No Action furosemide 40 mg tablet 0 mg PO DIRECTED RF: 0 loperamide 2 mg capsule 0 mg PO DAILY PRN PRNRF: 0 isosorbide mononitrate 30 mg Tablet Extended Release 24 Hr 30 mg PO BID RF: 0 thiamine HCl (vitamin B1) 100 mg Tablet 100 mg PO DAILY RF: 0 hydralazine 25 mg tablet 25 mg PO TID RF: 0 liothyronine 5 mcg tablet 10 mcg PO DAILY RF: 0 isosorbide mononitrate 60 mg tablet extended release 24 hr 60 mg PO BID RF: 0 ascorbic acid (vitamin C) [Vitamin C] 500 mg Tablet 500 mg PO DAILY RF: 0 guanfacine 1 mg tablet 1 mg PO BID RF: 0 nitroglycerin [Nitrostat] 0.4 mg Tablet, Sublingual 0.4 mg SUBLINGUAL Q5 MIN PRN X3 PRNRF: 0 mirtazapine 15 mg tablet 7.5 - 15 mg PO HS RF: 0 azelastine 137 mcg (0.1 %) Aerosol,[place] 2 spray INTRANASAL BID RF: 0 budesonide 3 mg capsule,delayed,extend.release 9 mg PO DAILY RF: 0 acetaminophen [Tylenol Extra Strength] 500 mg Capsule 500 mg PO BID PRNRF: 0 escitalopram oxalate [Lexapro] 20 mg Tablet 40 mg PO DAILY RF: 0 zinc 50 mg Capsule 220 mg PO DAILY RF: 0 magnesium L-lactate [Magtab] 84 mg Tablet Extended Release 84 mg PO BID RF: 0 Acetyl L-Carnitine 250 mg Capsule 500 mg PO DAILY RF: 0 acetylcysteine [NAC] 600 mg Capsule 600 mg PO BID RF: 0 cholecalciferol (vitamin D3) 1,250 mcg (50,000 unit) Capsule 1,250 mcg PO QMONTH RF: 0 levomefolate calcium 15 mg Tablet 15 mg PO DAILY RF: 0 Discharge Instructions Instructions: COVID-19 (Coronavirus Disease 2019) (DC) Activity:: bed to chair Diet:: Normal Diet Discharge Orders Discharge Orders: Discharge Order (Routine); Ordered 12/16/20 Ordered By: Leanna Hays DS: Summary Time Spent with Patient providing and/or coordinating discharge services: Greater than 30 minutes Status at Discharge Functional status at discharge: independent ambulation Overall status at discharge: patient is not back to baseline Mental Status: mental status grossly normal Speech and Movement: speech and movement normal Mood: congruent mood Affect: normal affect Exam Narrative Exam Narrative: General: pleasant elderly female, nontoxic appearing, no dyspnea/tachypnea/cyanosis, not proning NEuro: A&OX3, UTE, no focal deficits Psych: appropriate speech pattern/content Skin: visible skin intact HEENT: Atraumatic, normocephalic, EOMI, dry MM, clear oropharynx, no submandibular or cervical lymphadenopathy, no goiter or JVD Heart: RRR, +ELAINE Lungs: Diminished breath sounds B Abdomen: soft, tender in epigastrium, nondistended Extremities: no edema BLE's, trace pedal pulses B Psych Mental Status: mental status grossly normal Speech and Movement: speech and movement normal Mood: congruent mood Affect: normal affect DS: Data Vitals/I&O Vitals and I&O: Vital Signs Temperature 36.8 C 12/16/20 12:00 Temperature Source Temporal Artery Scan 12/16/20 08:30 Pulse 79 12/16/20 12:01 Pulse Rhythm Regular 12/15/20 17:25 Pulse 76 12/16/20 13:00 Respiratory Rate 21 12/16/20 13:00 Respiratory Effort Non-Labored 12/16/20 12:00 Respiratory Depth Normal 12/16/20 12:00 Respiratory Pattern Normal 12/16/20 12:00 Blood Pressure 156/85 H 12/16/20 12:01 Blood Pressure Mean 101 12/16/20 12:01 Blood Pressure Position Supine 12/16/20 08:30 Pulse Oximetry 96 12/16/20 13:00 Oxygen Delivery Method Nasal Cannula 12/16/20 12:00 Oxygen Flow Rate 2 12/16/20 12:00 Pain Level 0 12/16/20 12:00 Intake & Output 12/15/20 12/16/20 12/16/20 23:59 11:59 23:59 Intake Total 160 / 160 1688 / 1744.1 56.1 / 1744.1 Output Total 480 / 480 Balance 160 / 160 1208 / 1264.1 56.1 / 1264.1 Weight 55.1 kg Intake: IV 160 / 160 1688 / 1744.1 56.1 / 1744.1 Output: Urine 480 / 480 Other: Urine Color Pale Pale Yellow Yellow Urine Appearance Clear Clear Comment gautam placed Data Completed and Pending Completed studies during hospitalization [Text1]: CXR: Linear infiltrate in the left mid lung. This may represent atelectasis or pneumonia. Labs on day of discharge: Labs from last 24 hours 12/16/20 12/16/20 12/16/20 12:20 12:20 04:40 WBC RBC Hgb Hct MCV MCH MCHC RDW Plt Count MPV Immature Gran % Neutrophils % Lymphocytes % Monocytes % Eosinophils % Basophils % Nucleated RBC % Absolute Neutrophils Absolute Lymphocytes Absolute Monocytes Absolute Eosinophils Absolute Basophils APTT > 155.0 H* D-Dimer 1272 H VBG Lactate Sodium Potassium Chloride Carbon Dioxide Anion Gap BUN Creatinine Estimated GFR/1.73 m2 Glucose Calcium Magnesium Ferritin Total Bilirubin Conjugated Bilirubin AST ALT Alkaline Phosphatase Lactate Dehydrogenase Creatine Kinase Troponin I 1.11 H* C-Reactive Protein NT-Pro-B Natriuret Pep Total Protein Albumin 25-OH Vitamin D Total Procalcitonin Urine Color Urine Clarity Urine pH Ur Specific [place] Urine Protein Urine Ketones Urine Blood Urine Nitrite Urine Bilirubin Urine Urobilinogen Ur Leukocyte Esterase Urine RBC Urine WBC Ur Epithelial Cells Urine Crystals Urine Bacteria Urine Casts Urine Mucus Urine Other Ur Culture Indicated? Urine Glucose SARS-CoV-2 (PCR) 12/16/20 12/16/20 12/16/20 04:40 04:40 04:40 WBC RBC Hgb Hct MCV MCH MCHC RDW Plt Count MPV Immature Gran % Neutrophils % Lymphocytes % Monocytes % Eosinophils % Basophils % Nucleated RBC % Absolute Neutrophils Absolute Lymphocytes Absolute Monocytes Absolute Eosinophils Absolute Basophils APTT D-Dimer VBG Lactate 1.3 Sodium Potassium Chloride Carbon Dioxide Anion Gap BUN Creatinine Estimated GFR/1.73 m2 Glucose Calcium Magnesium 2.3 Ferritin Total Bilirubin Conjugated Bilirubin AST ALT Alkaline Phosphatase Lactate Dehydrogenase Creatine Kinase Troponin I C-Reactive Protein NT-Pro-B Natriuret Pep Total Protein Albumin 25-OH Vitamin D Total 81.7 Procalcitonin Urine Color Urine Clarity Urine pH Ur Specific [place] Urine Protein Urine Ketones Urine Blood Urine Nitrite Urine Bilirubin Urine Urobilinogen Ur Leukocyte Esterase Urine RBC Urine WBC Ur Epithelial Cells Urine Crystals Urine Bacteria Urine Casts Urine Mucus Urine Other Ur Culture Indicated? Urine Glucose SARS-CoV-2 (PCR) 12/16/20 12/16/20 12/16/20 04:40 04:40 04:40 WBC RBC Hgb Hct MCV MCH MCHC RDW Plt Count MPV Immature Gran % Neutrophils % Lymphocytes % Monocytes % Eosinophils % Basophils % Nucleated RBC % Absolute Neutrophils Absolute Lymphocytes Absolute Monocytes Absolute Eosinophils Absolute Basophils APTT > 155.0 H* D D-Dimer VBG Lactate Sodium 140 Potassium 4.4 Chloride 103 Carbon Dioxide 23.9 Anion Gap 13.1 H BUN 58 H D Creatinine 2.5 H Estimated GFR/1.73 m2 18.35 Glucose 141 H Calcium 9.0 Magnesium Ferritin 456 H Total Bilirubin 0.3 Conjugated Bilirubin 0.1 AST 32 ALT 23 Alkaline Phosphatase 88 Lactate Dehydrogenase Creatine Kinase 57 Troponin I 1.29 H* C-Reactive Protein 2.57 H NT-Pro-B Natriuret Pep Total Protein 7.8 Albumin 3.1 L 25-OH Vitamin D Total Procalcitonin Urine Color Urine Clarity Urine pH Ur Specific [place] Urine Protein Urine Ketones Urine Blood Urine Nitrite Urine Bilirubin Urine Urobilinogen Ur Leukocyte Esterase Urine RBC Urine WBC Ur Epithelial Cells Urine Crystals Urine Bacteria Urine Casts Urine Mucus Urine Other Ur Culture Indicated? Urine Glucose SARS-CoV-2 (PCR) 12/16/20 12/15/20 12/15/20 04:30 20:34 20:34 WBC 9.74 RBC 4.75 Hgb 13.8 Hct 44.2 MCV 93.1 D MCH 29.1 MCHC 31.2 L RDW 13.9 Plt Count 250 MPV 11.1 H Immature Gran % 0.4 Neutrophils % 77.4 Lymphocytes % 18.9 Monocytes % 3.2 Eosinophils % 0.0 Basophils % 0.1 Nucleated RBC % 0 Absolute Neutrophils 7.54 H Absolute Lymphocytes 1.84 Absolute Monocytes 0.31 Absolute Eosinophils 0.00 Absolute Basophils 0.01 APTT 35.7 H D-Dimer VBG Lactate Sodium Potassium Chloride Carbon Dioxide Anion Gap BUN Creatinine Estimated GFR/1.73 m2 Glucose Calcium Magnesium Ferritin Total Bilirubin Conjugated Bilirubin AST ALT Alkaline Phosphatase Lactate Dehydrogenase Creatine Kinase Troponin I 1.20 H* C-Reactive Protein NT-Pro-B Natriuret Pep Total Protein Albumin 25-OH Vitamin D Total Procalcitonin Urine Color Urine Clarity Urine pH Ur Specific [place] Urine Protein Urine Ketones Urine Blood Urine Nitrite Urine Bilirubin Urine Urobilinogen Ur Leukocyte Esterase Urine RBC Urine WBC Ur Epithelial Cells Urine Crystals Urine Bacteria Urine Casts Urine Mucus Urine Other Ur Culture Indicated? Urine Glucose SARS-CoV-2 (PCR) 12/15/20 12/15/20 12/15/20 18:00 15:20 13:52 WBC RBC Hgb Hct MCV MCH MCHC RDW Plt Count MPV Immature Gran % Neutrophils % Lymphocytes % Monocytes % Eosinophils % Basophils % Nucleated RBC % Absolute Neutrophils Absolute Lymphocytes Absolute Monocytes Absolute Eosinophils Absolute Basophils APTT D-Dimer VBG Lactate Sodium Potassium Chloride Carbon Dioxide Anion Gap BUN Creatinine Estimated GFR/1.73 m2 Glucose Calcium Magnesium Ferritin Total Bilirubin Conjugated Bilirubin AST ALT Alkaline Phosphatase Lactate Dehydrogenase Creatine Kinase Troponin I 0.93 H* C-Reactive Protein NT-Pro-B Natriuret Pep Total Protein Albumin 25-OH Vitamin D Total Procalcitonin Urine Color Yellow Urine Clarity Cloudy Urine pH 6.0 Ur Specific [place] 1.020 Urine Protein 100 H Urine Ketones Negative Urine Blood Negative Urine Nitrite Negative Urine Bilirubin Negative Urine Urobilinogen 0.2 Ur Leukocyte Esterase Moderate H Urine RBC 10-20 H Urine WBC >50 H Ur Epithelial Cells Negative Urine Crystals Negative Urine Bacteria Many Urine Casts Negative Urine Mucus Negative Urine Other Negative Ur Culture Indicated? Yes Urine Glucose Negative SARS-CoV-2 (PCR) POSITIVE A* 12/15/20 12/15/20 12/15/20 13:51 13:51 13:51 WBC RBC Hgb Hct MCV MCH MCHC RDW Plt Count MPV Immature Gran % Neutrophils % Lymphocytes % Monocytes % Eosinophils % Basophils % Nucleated RBC % Absolute Neutrophils Absolute Lymphocytes Absolute Monocytes Absolute Eosinophils Absolute Basophils APTT D-Dimer 1942 H VBG Lactate Sodium Potassium Chloride Carbon Dioxide Anion Gap BUN Creatinine Estimated GFR/1.73 m2 Glucose Calcium Magnesium Ferritin Total Bilirubin Conjugated Bilirubin AST ALT Alkaline Phosphatase Lactate Dehydrogenase Creatine Kinase 36 Troponin I C-Reactive Protein NT-Pro-B Natriuret Pep 5533 H Total Protein Albumin 25-OH Vitamin D Total Procalcitonin 0.2 Urine Color Urine Clarity Urine pH Ur Specific [place] Urine Protein Urine Ketones Urine Blood Urine Nitrite Urine Bilirubin Urine Urobilinogen Ur Leukocyte Esterase Urine RBC Urine WBC Ur Epithelial Cells Urine Crystals Urine Bacteria Urine Casts Urine Mucus Urine Other Ur Culture Indicated? Urine Glucose SARS-CoV-2 (PCR) 12/15/20 13:51 WBC RBC Hgb Hct MCV MCH MCHC RDW Plt Count MPV Immature Gran % Neutrophils % Lymphocytes % Monocytes % Eosinophils % Basophils % Nucleated RBC % Absolute Neutrophils Absolute Lymphocytes Absolute Monocytes Absolute Eosinophils Absolute Basophils APTT D-Dimer VBG Lactate Sodium 138 Potassium 4.1 Chloride 101 Carbon Dioxide 27.6 Anion Gap 9.4 BUN 47 H Creatinine 2.6 H Estimated GFR/1.73 m2 17.54 Glucose 117 H Calcium 9.0 Magnesium Ferritin 358 H Total Bilirubin 0.4 Conjugated Bilirubin AST 30 ALT 26 Alkaline Phosphatase 91 Lactate Dehydrogenase 246 H Creatine Kinase Troponin I 0.22 H* C-Reactive Protein 1.11 H NT-Pro-B Natriuret Pep Total Protein 8.1 Albumin 3.4 25-OH Vitamin D Total Procalcitonin Urine Color Urine Clarity Urine pH Ur Specific [place] Urine Protein Urine Ketones Urine Blood Urine Nitrite Urine Bilirubin Urine Urobilinogen Ur Leukocyte Esterase Urine RBC Urine WBC Ur Epithelial Cells Urine Crystals Urine Bacteria Urine Casts Urine Mucus Urine Other Ur Culture Indicated? Urine Glucose SARS-CoV-2 (PCR) 12/15/20 18:00 Blood Blood Culture - Pending 12/15/20 13:51 Blood Blood Culture - Pending Preliminary micro results at discharge 12/15/20 15:20 Urine Culture - Preliminary Urine - Reflex from Ua Gram Negative Billy 12/15/20 18:00 Blood Culture - Pending Blood 12/15/20 13:51 Blood Culture - Pending Blood [facility] Medical History (Updated 12/16/20 @ 14:19 by Leanna Hays MD) Afib Antiphospholipid antibody syndrome CAD (coronary artery disease) CKD (chronic kidney disease) COPD (chronic obstructive pulmonary disease) Elevated troponin GI bleeding Hiatal hernia HTN (hypertension) Hypothyroid Iron deficiency anemia Kidney stone Rectal prolapse Sjogrens syndrome Surgical History History of repair of hiatal hernia Family History Sister Heart disease Hypertension Father Heart disease Stroke Other Diabetes Social History Smoking/Tobacco Use Status: Former Tobacco Use Smoking risk assessment performed?: Yes Alcohol Intake: current Alcohol Intake frequency: a few times a month Drug use: Never Substance use type: does not use Do you feel safe at home: Yes Do you feel safe in your relationship?: Yes
== END 2020-12-16 14:35 | disposition short-term general hospital (02) | DRG 177 ==
LOC: ER 15:53 → MS 17:14 → ICU 21:12
PROVIDERS: Family Medicine; Admitting Provider Internal Medicine; Emergency Provider Emergency Medicine; PCP Internal Medicine; Visit Provider Internal Medicine
DX: U07.1 COVID-19 (principal); J15.9 Unspecified bacterial pneumonia; D68.61 Antiphospholipid syndrome; I50.22 Chronic systolic (congestive) heart failure; N18.4 Chronic kidney disease, stage 4 (severe); J44.0 Chronic obstructive pulmonary disease with (acute) lower respiratory infection; I13.0 Hypertensive heart and chronic kidney disease with heart failure and stage 1 through stage 4 chronic kidney disease, or unspecified chronic kidney disease; N17.9 Acute kidney failure, unspecified; I44.7 Left bundle-branch block, unspecified; I25.10 Atherosclerotic heart disease of native coronary artery without angina pectoris; I25.2 Old myocardial infarction; R74.8 Abnormal levels of other serum enzymes; K44.9 Diaphragmatic hernia without obstruction or gangrene; E03.9 Hypothyroidism, unspecified; N20.0 Calculus of kidney; M35.00 Sjogren syndrome, unspecified; K62.3 Rectal prolapse; R13.14 Dysphagia, pharyngoesophageal phase; I48.0 Paroxysmal atrial fibrillation; D50.0 Iron deficiency anemia secondary to blood loss (chronic)
CPT/HCPCS: 36415; 80048; 80053; 80076; 82306; 82550; 84145; 87040; 87077; 87635; 93005; 96361; 96374; 99222; 99285; 71045; 81003; 81015; 82728; 83605; 83615; 83735; 83880; 84484; 85025; 85379; 85730; 86140; 87086; 87186; 93010; 99220; 99291; G0378; J0696; J1100; J1650

== ENCOUNTER → 2020-12-16 07:39 | Outpatient (BNVA) | payer MEDICARE, OTHER, SELFPAY | PROVIDERS: PCP Internal Medicine; Referring Provider Internal Medicine; Visit Provider Internal Medicine Cardiovascular Disease | DX: R69 Illness, unspecified (principal) ==